=== PATIENT | female | born 1945 | race Caucasian/White ===

== ENCOUNTER 2019-01-01 16:02 | Inpatient (IN) | payer MEDICARE, OTHER ==
[~2019-01-01] VITALS: Ht 170.2 cm; Wt 117.9 kg
[~2019-01-01 16:02] MED LIST: ASPI81CH; ATOR10; ATOR10 PO; CENTRUM SILVER WOMEN PO; CLIN300 PO; CYAN500 PO; Cipro250 MG PO; DEXA4 PO; DIOVAN PO; ESCI10; ESCI10 PO; FERR325 PO; Flagyl250 MG PO; GABA300 PO; GLIMEPIRIDE PO; GLUC500 PO; GLUCHON; HCTZ PO; HYDCHL12.5 PO; HYDROCORTISONE CREAM TOP; LEVSOD125 PO; LEVSOD50; LEVSOD88 PO; LOSA50 PO; MAGOXI400 PO; METF500; METF500 PO; METF500C PO; METO100ER; METO100ER PO; MICARDIS PO; NAPR220 PO; OMEP20ER PO; Omeprazole20 M1 PO; PRED20 PO; TAXOL; TELM20 PO; TRIPLE FLEX PO; VALS80; VALS80 PO; VIT B; VITAMIN D PO; WARF2.5 PO; WARF3 PO; Zofran Odt4 MG SL
[2019-01-01 16:35] LABS: BASOPHILS ABSOLUTE AUTO 0.06 K/mm3 (0.00-0.23); BASOPHILS PERCENT AUTO 1 % (0-2); EOSINOPHILS ABSOLUTE AUTO 0.07 K/mm3 (0.00-0.68); EOSINOPHILS PERCENT AUTO 1 % (0-6); Hematocrit 42.3 % (33.0-51.0); Hemoglobin 13.4 g/dL (11.5-16.0); IMMATURE GRAN ABSOLUTE AUTO 0.02 K/mm3 (0.00-0.10); IMMATURE GRAN PERCENT AUTO 0 % (0-1); LYMPHOCYTES ABSOLUTE AUTO 1.08 K/mm3 (0.84-5.20); LYMPHOCYTES PERCENT AUTO 11 % (21-46); MONOCYTES ABSOLUTE AUTO 0.81 K/mm3 (0.16-1.47); MONOCYTES PERCENT AUTO 8 % (4-13); Mean Corpuscular HGB 28.4 pg (26.0-34.0); Mean Corpuscular HGB Conc 31.7 g/dL (31.5-36.5); Mean Corpuscular Volume 90 fL (80-100); Mean Platelet Volume 10.1 fL (9.1-12.4); NEUTROPHILS ABSOLUTE AUTO 8.27 K/mm3 (1.96-9.15); NEUTROPHILS PERCENT AUTO 80 % (41-73); Platelet Count 187 K/mm3 (150-400); RDW Standard Deviation 46.3 fL (35.1-46.3); Red Blood Cell Count 4.72 M/mm3 (3.80-5.20); White Blood Cell Count 10.31 K/mm3 (4.00-11.30)
[2019-01-01 16:58] LABS: Albumin, Blood 3.5 g/dL (3.4-5.0); Bilirubin, Total 1.6 mg/dL (0.1-1.0); Bun/Creatinine Ratio 19.4 (12.0-20.0); Calcium, Blood 8.6 mg/dL (8.5-10.1); Creatinine, Blood 1.03 mg/dL (0.40-1.00); Globulin, Blood 3.4 g/dL (2.2-4.0); Potassium, Blood 4.1 mmol/L (3.5-5.5); Total Protein, Blood 6.9 g/dL (6.4-8.2)
[2019-01-01] MEDS ORDERED: VITAMIN D31000 UNI2 PO (19:20)
[2019-01-01] MEDS ORDERED: THERA1 EACH PO (19:21)
[2019-01-01] MEDS ORDERED: FOLI1 PO (19:23)
[2019-01-01] MEDS ORDERED: Ferosul325 MG PO (19:25)
--- NOTE | 2019-01-02 06:06 | NUR ---
SHIFT SUMMARY PT NEW ADMIT THIS SHIFT. AAOX4. NPO. DISCOMFORT CONTROLLED WITH 50mcg FENTANYL Q4P. NO NAUSEA/EMESIS. HEADACHE CONTROLLED WITH TYLENOL X1 THIS SHIFT. ABD SOFT/DISTENDED AT BASELINE PER PT. UP TO BEDPAN PT REFUSED TO GET OOB FOR RESTROOM. PT EDUCATED REGARDING THE IMPORTANCE OF MOVEMENT PRE AND POST SURGERY. ORIENTED TO ROOM + CALL LIGHT USE. 18g IV IN PLACE INFUSING FLUIDS + ABX PER ORDERS. SURGICAL PACKET ON FRONT OF CHART. PT RESTING WELL AT THIS TIME, NADN, WITH CALL LIGHT IN REACH.
--- NOTE | 2019-01-02 09:06 | NUR ---
PLACED CALL TO DR CANNON TO OBTAIN ORDER FOR PT'S HOME MEDS.
--- NOTE | 2019-01-02 11:47 | NUR ---
PT TO PRE OP
--- NOTE | 2019-01-02 12:00 | NUR ---
INTO SDS VIA [employer]. PT A&OX3 REPORTS 5/10 ABDOMINAL PAIN AND INTERMITTENT NAUSEA. HISTORY AND ALLERGIES REVIEWED. NPO STATUS CONFIRMED. LUNGS WITH SCATTERED INSPIRATORY AND EXPIRATORY WZ. SATS>90% ON RA.CLORHEXADINE TO ABDOMEN.
--- NOTE | 2019-01-02 13:06 | NUR ---
01/02/19 1306 Mukul Anton PT ON SCHEDULED ANTIBIOTICS, WHICH WERE ADMINISTERED PRIOR TO ARRIVAL TO OR.
--- NOTE | 2019-01-02 17:25 | NUR ---
SUMMARY S/P LAP APPY THIS SHIFT. PT DENIES PAIN SINCE ARRIVING BACK TO FLOOR FROM PACU. TOLERATING SIPS OF CLEARS. IV INFUSING W/O DIFFICULTY. ECHO DRAINING SS FLUID. FAMILY AT BEDSIDE. CALL LIGHT IN REACH.
[2019-01-03 04:02] LABS: BASOPHILS ABSOLUTE AUTO 0.01 K/mm3 (0.00-0.23); BASOPHILS PERCENT AUTO 0 % (0-2); EOSINOPHILS PERCENT AUTO 0 % (0-6); Hematocrit 37.1 % (33.0-51.0); Hemoglobin 11.8 g/dL (11.5-16.0); IMMATURE GRAN ABSOLUTE AUTO 0.07 K/mm3 (0.00-0.10); IMMATURE GRAN PERCENT AUTO 1 % (0-1); LYMPHOCYTES ABSOLUTE AUTO 0.74 K/mm3 (0.84-5.20); LYMPHOCYTES PERCENT AUTO 6 % (21-46); MONOCYTES ABSOLUTE AUTO 0.67 K/mm3 (0.16-1.47); MONOCYTES PERCENT AUTO 5 % (4-13); Mean Corpuscular HGB Conc 31.8 g/dL (31.5-36.5); Mean Corpuscular Volume 88 fL (80-100); Mean Platelet Volume 10.2 fL (9.1-12.4); NEUTROPHILS ABSOLUTE AUTO 11.39 K/mm3 (1.96-9.15); NEUTROPHILS PERCENT AUTO 89 % (41-73); Platelet Count 146 K/mm3 (150-400); RDW Coefficient Variation 14.3 % (11.7-14.2); RDW Standard Deviation 45.8 fL (35.1-46.3); Red Blood Cell Count 4.22 M/mm3 (3.80-5.20); White Blood Cell Count 12.88 K/mm3 (4.00-11.30)
--- NOTE | 2019-01-03 04:20 | NUR ---
SHIFT SUMMARY POD1 LAP APPY AA0X4, VSS. PATIENT ON 2L VIA NC DURING SHIFT. DECLINED USE OF CPAP R/T DISCOMFORT WHEN WEARING. PATIENT AMBULATED TO BATHROOM AND IN HALLWAYS WITH MINIMAL ASSIST. LAP SITES COVERED WITH GAUZE, CDI. PATIENT MEDICATED FOR PAIN X1 DURING SHIFT. DENIES PAIN OTHERWISE. ECHO DRAIN EMPTIED FOR 40ML SS FLUID. PATIENT TOLERATING PO FLUIDS. STATES SHE IS PASSING SOME FLATUS. PATIENT VOIDING DURING SHIFT.
[2019-01-03 04:26] LABS: Bun/Creatinine Ratio 18.6 (12.0-20.0); Calcium, Blood 8.2 mg/dL (8.5-10.1); Creatinine, Blood 1.45 mg/dL (0.40-1.00); Potassium, Blood 4.4 mmol/L (3.5-5.5)
--- NOTE | 2019-01-03 14:03 | NUR ---
dr traylor in to see pt.
[2019-01-03 15:26] LABS: Source, Urine Clean Catch
[2019-01-03 15:32] LABS: Bilirubin, Urine Neg (Neg); Blood, Urine 1+ (Neg); Glucose Qualitative, Urine Neg (Neg); Ketones, Urine 2+ (Neg); Leukocyte Esterase, Urine 3+ (Neg); Nitrite, Urine Neg (Neg); Protein, Urine 2+ (Neg); Specific Gravity, Urine 1.025 (1.003-1.022); Urobilinogen, Urine NORM (Normal)
[2019-01-03 15:40] LABS: Appearance, Urine Hazy (Clear); Color, Urine Yellow (P-Yellow)
[2019-01-03 15:41] LABS: Bacteria Many /hpf; Red Blood Cells, Urine 0-2 /hpf (0-2); Squamous Epithelial Cells Mod /hpf (Few); White Blood Cells, Urine 25-50 /hpf (0-5)
--- NOTE | 2019-01-03 17:26 | NUR ---
SUMMARY PT HAD SMALL AMOUNT EMESIS THIS AM. MEDICATED PER ORDERS FOR N/V. PT HAS MINIMIZED PO INTAKE THIS SHIFT W/EXCEPTION OF WATER DUE TO GI UPSET. PAIN CONTROLLED PER EMAR. YUDITH OATES CONSULTED FOR DM MANAGEMENT PER DR CANNON'S VERBAL ORDER. ORDERS OBTAINED. PT AMBULATED IN [place]. RESTING AT THIS TIME W/LIGHTS OFF AND HOME CPAP IN PLACE. CALL LIGHT IN REACH.
[2019-01-04 04:14] LABS: Hematocrit 39.3 % (33.0-51.0); Hemoglobin 12.3 g/dL (11.5-16.0); Mean Corpuscular HGB 27.7 pg (26.0-34.0); Mean Corpuscular HGB Conc 31.3 g/dL (31.5-36.5); Mean Corpuscular Volume 89 fL (80-100); Mean Platelet Volume 10.1 fL (9.1-12.4); Platelet Count 159 K/mm3 (150-400); RDW Coefficient Variation 14.3 % (11.7-14.2); RDW Standard Deviation 46.2 fL (35.1-46.3); Red Blood Cell Count 4.44 M/mm3 (3.80-5.20); White Blood Cell Count 5.84 K/mm3 (4.00-11.30)
[2019-01-04 04:32] LABS: Albumin, Blood 2.5 g/dL (3.4-5.0); Albumin/Globulin Ratio 0.7 (0.8-1.8); Bilirubin, Total 1.2 mg/dL (0.1-1.0); Calcium, Blood 8.2 mg/dL (8.5-10.1); Creatinine, Blood 1.35 mg/dL (0.40-1.00); Globulin, Blood 3.7 g/dL (2.2-4.0); Potassium, Blood 4.2 mmol/L (3.5-5.5); Total Protein, Blood 6.2 g/dL (6.4-8.2)
--- NOTE | 2019-01-04 05:11 | NUR ---
SHIFT SUMMARY POD 2 LAP APPY PT AA0X4 VSS UNTIL LAST CHECK BP ELEVATED, PRN HYDRALAZINE GIVEN. PAIN MANAGED WITH PO NARCOTICS DURING SHIFT. PATIENT AMBULATED HALLS AND TO RESTROOM DURING SHIFT, TOLERATED WELL. DENIES FLATUS, BOWEL SOUNDS PRESENT. SOME COMPLAINTS OF GAS PAIN. 160ML OUT OF ECHO DRAIN. SS DRAINAGE. LAP SITES CDI. PATIENT C/O NAUSEA AND GIVEN PRN ZOFRAN, PATIENT STATES RELIEF. CPAP WORN DURING SHIFT. ROOM AIR WHEN NOT WEARING CPAP.
--- NOTE | 2019-01-04 06:18 | NUR ---
HIGH BP DR NOTIFIED OF NEW ELEVATED BP. NEW ORDERS FOR PRN LABETELOL GIVEN. PATIENT CURRENTLY ASYMPTOMATIC. ONLY COMPLAINTS OF FEELING "A LITTLE CRUMMY". AWAITING TELE TO ADMINISTER MEDICATION.
--- NOTE | 2019-01-04 06:48 | NUR ---
TELE APPLIED. SINUS AT 68 PER HEALTH CARE FACILITY ADMINISTRATOR. LABETELOL GIVEN. PT TOLERATED WELL. STATES THAT SHE DOES NOT FEEL CRUMMY. SHE "FEELS MORE RELAXED".
--- NOTE | 2019-01-04 16:32 | NUR ---
dr traylor here and removed inez drain
--- NOTE | 2019-01-04 17:48 | NUR ---
summary patient reports good pain control with po meds- states she plans to just take plain tylenol in the future. to small amounts po food and fluid without nausea. patient anticipates discharging to home in the morning. patient up ad hope to bathroom, steady on feet
--- NOTE | 2019-01-05 03:22 | NUR ---
Patient A/O x4. VSS. Saline locked. Complaints of N/V and mild pain; medicated as ordered. Ambulating in room, voiding freely. Patient reports no flatus. Dressing to abd DCI. New IV placed to R AC.
--- NOTE | 2019-01-05 07:08 | NUR ---
IV to R AC infiltrted. Multiple attempts made to establish IV access, unsuccessful.
[2019-01-05 11:23] LABS: Albumin, Blood 2.9 g/dL (3.4-5.0); Albumin/Globulin Ratio 0.7 (0.8-1.8); Bun/Creatinine Ratio 26.5 (12.0-20.0); Creatinine, Blood 1.17 mg/dL (0.40-1.00); Globulin, Blood 4.3 g/dL (2.2-4.0); Total Protein, Blood 7.2 g/dL (6.4-8.2)
--- NOTE | 2019-01-05 19:11 | NUR ---
SHIFT SUMMARY PT POD 3 LAP APPY, LAP AND ECHO SITES C/D/I. BT HYPOACTIVE. C/O N/V THROUGHOUT SHIFT-MEDICATED PER EMAR, EMESIS LIGHT BROWN IN COLOR. PT CONTINUES TO HAVE HTN T/O SHIFT, MEDICATED PER EMAR WITH NO IMPROVEMENT IN BP. DR FRANCES NOTIFIED AND ORDER TO INCREASE PO HYDRALAZINE WHICH WAS GIVEN TO PT WITH NO IMPROVEMENT. ANIMAL MAINTENANCE SUPERVISOR HOSPITALIST NOTIFED AT 1908, AWAITING NEW ORDERS. REPORT GIVEN TO JESSEE RODRIGUEZ.
--- NOTE | 2019-01-05 23:21 | NUR ---
PATIENT AT THE BEGINNING OF THIS SHIFT WAS NAUSEATED AND VOMITING. EMESIS WAS MOSTLY TRANSLUCENT FLUID WITH BROWN/DALEY COLOR, AND FLECKS OF BROWN. EMESIS WAS FREQUENT AND AMOUNTS LESS THAN 100CC. PATIENT WAS HAVING DISCOMFORT RELATED TO THE NAUSEA AND VOMITING, DILAUDID GIVEN @ 1900 FOR PAIN, WITH RAPID RELIEF TO NAUSEA, VOMITING AND ELEVATED BP. TWO HOURS LATER THE PATIENT WAS RESTING WITH NO COMPLAINTS AND A SYSTOLIC BP LESS THAN 160.
--- NOTE | 2019-01-06 03:35 | NUR ---
PATIENT HAS HAD INTERMITTENT NAUSEA AND SCANT AMOUNT OF EMESIS. SIPS OF WATER TO TAKE PO MEDS. BELCHING WHEN UP TO WALK OR TO BR. SHE FEELS THAT HER ABDOMENT IS LESS DISTENEDED THAN YESTERDAY AFTERNOON.
[2019-01-06 04:40] LABS: BASOPHILS ABSOLUTE AUTO 0.04 K/mm3 (0.00-0.23); BASOPHILS PERCENT AUTO 1 % (0-2); EOSINOPHILS ABSOLUTE AUTO 0.05 K/mm3 (0.00-0.68); EOSINOPHILS PERCENT AUTO 1 % (0-6); Hematocrit 39.2 % (33.0-51.0); Hemoglobin 12.4 g/dL (11.5-16.0); Mean Corpuscular HGB 28.3 pg (26.0-34.0); Mean Corpuscular HGB Conc 31.6 g/dL (31.5-36.5); Mean Corpuscular Volume 90 fL (80-100); Mean Platelet Volume 9.4 fL (9.1-12.4); Platelet Count 191 K/mm3 (150-400); RDW Standard Deviation 46.5 fL (35.1-46.3); Red Blood Cell Count 4.38 M/mm3 (3.80-5.20); White Blood Cell Count 3.56 K/mm3 (4.00-11.30)
[2019-01-06 04:42] LABS: IMMATURE GRAN ABSOLUTE AUTO 0.03 K/mm3 (0.00-0.10); IMMATURE GRAN PERCENT AUTO 1 % (0-1); LYMPHOCYTES ABSOLUTE AUTO 0.87 K/mm3 (0.84-5.20); LYMPHOCYTES PERCENT AUTO 24 % (21-46); MONOCYTES ABSOLUTE AUTO 0.48 K/mm3 (0.16-1.47); MONOCYTES PERCENT AUTO 14 % (4-13); NEUTROPHILS ABSOLUTE AUTO 2.09 K/mm3 (1.96-9.15); NEUTROPHILS PERCENT AUTO 59 % (41-73)
[2019-01-06 04:56] LABS: Bun/Creatinine Ratio 21.7 (12.0-20.0); Calcium, Blood 8.4 mg/dL (8.5-10.1); Creatinine, Blood 1.15 mg/dL (0.40-1.00); Potassium, Blood 4.3 mmol/L (3.5-5.5)
--- NOTE | 2019-01-06 06:31 | NUR ---
PATIENT'S NAUSEA HAS RESOLVED, NO VOMITING FOR THE PAST 2 HOURS. BP THIS AM WAS 158/95, HR 70 SR. NO OTHER ACUTE CHANGES.
--- NOTE | 2019-01-06 17:35 | NUR ---
SHIFT SUMMARY PT HAS CONTINUED TO HAVE N/V THROUGHOUT SHIFT-EMESIS DARK GREEN IN COLOR, SMALL AMOUNTS AT A TIME, PT HAS BEEN ABLE TO KEEP PO MEDICATIONS DOWN THIS SHIFT. ABDOMEN MODERATE DISTENTION, BUT HYPOACTIVE, DENIES FLATUS THIS SHIFT. CONTINUED HTN-DENIES HEADACHE. MD NOTIFIED, RESTARTED ON COZAR AND CONTINUED MEDICATING WITH PRN MEDICATIONS, BP INITIALLY SHOWS IMPROVEMENT BUT THEN TRENDS BACK UP, MD AWARE. TELE INPLACE, NSR W/HR IN 80'S THIS SHIFT. PT EDUCATED ON THE NEED TO AMBULATE IN HALLWAYS AT LEAST 3 TIMES PER SHIFT TO ENCOURAGE GASTRIC MOTILITY, VERBALIZED UNDERSTANDING OF THESE INSTRUCTIONS. MEDICATED FOR ABDOMINAL PAIN PER EMAR.
--- NOTE | 2019-01-07 06:39 | NUR ---
SUMMARY PT WITH SMALL AMNTS BILE SPIT UP TONIGHT.IV REQUIRING CHANGED. Sha ROBLES RN OBTAINED POWER GLIDE PT IS DIFF START.ABD DISTENDED, BUT SOFT. SOME FLATUS,NO BM. REPORTED ILEUS.
--- NOTE | 2019-01-07 19:21 | NUR ---
SUMMARY: PT IS POD5 ACUTE LAP APPY. NO ACUTE CHANGE TODAY. PT CONTINUES TO HAVE HTN, MEDS ADJUSTED BY DR. ODELL IN THE MORNING AND BP DID TREND DOWN, ALTHOUGH IN THE LATE AFTERNOON, PT HAD MORE HTN. DR. ODELL NOTIFIED OF THIS AND IV LASIX GIVEN X1. PT ALSO REPORTED INCREASED PAIN AND NAUSEA AT THIS TIME, MEDICATION GIVEN. WILL CTM BP. PT HAS HAD INTERMITTANT NAUSEA TODAY AND SEVERAL UNMEASURED EMESIS AFTER SMALL INTAKE OF FLUID. MEDICATED PER EMAR. PT REPORTS GAS, NO BM, NOT TOLERATING PO INTAKE AT THIS TIME. NO ACUTE SAFETY CONCERNS CURRENTLY, REPORT GIVEN TO DAVON RODRIGUEZ.
[2019-01-08 06:23] LABS: Hematocrit 36.2 % (33.0-51.0); Hemoglobin 11.3 g/dL (11.5-16.0); Mean Corpuscular HGB 27.3 pg (26.0-34.0); Mean Corpuscular HGB Conc 31.2 g/dL (31.5-36.5); Mean Platelet Volume 9.3 fL (9.1-12.4); Platelet Count 227 K/mm3 (150-400); RDW Coefficient Variation 14.1 % (11.7-14.2); RDW Standard Deviation 45.6 fL (35.1-46.3); Red Blood Cell Count 4.14 M/mm3 (3.80-5.20); White Blood Cell Count 4.76 K/mm3 (4.00-11.30)
[2019-01-08 06:24] LABS: Mean Corpuscular Volume 87 fL (80-100)
[2019-01-08 06:41] LABS: Albumin, Blood 2.5 g/dL (3.4-5.0); Anion Gap 9 mmol/L (6-16); Blood Urea Nitrogen 24 mg/dL (8-24); Bun/Creatinine Ratio 22.6 (12.0-20.0); CO2, Blood 22 mmol/L (21-32); Calcium, Blood 7.8 mg/dL (8.5-10.1); Chloride, Blood 113 mmol/L (98-108); Creatinine, Blood 1.06 mg/dL (0.40-1.00); Glomerular Filtration Rate 54 (60-); Glucose, Blood 105 mg/dL (70-99); Magnesium, Blood 1.7 mg/dL (1.6-2.4); Phosphorus, Blood 3.2 mg/dL (2.5-4.9); Potassium, Blood 3.8 mmol/L (3.5-5.5); Sodium, Blood 144 mmol/L (136-145)
[2019-01-08 06:56] LABS: BAND PERCENT MAN 10 % (0-8); BASOPHILS PERCENT MAN 0 % (0-2); EOSINOPHILS ABSOLUTE MAN 0.09 K/mm3 (0.00-0.68); EOSINOPHILS PERCENT MAN 2 % (0-6); LYMPHOCYTES ABSOLUTE MAN 0.66 K/mm3 (0.84-5.20); LYMPHOCYTES PERCENT MAN 14 % (21-46); MONOCYTES ABSOLUTE MAN 0.47 K/mm3 (0.16-1.47); MONOCYTES PERCENT MAN 10 % (4-13); NEUTROPHILS ABSOLUTE MAN 3.52 K/mm3 (1.96-9.15); SEG NEUTROPHILS PERCENT MAN 64 % (41-73); TOTAL CELLS COUNTED 100
--- NOTE | 2019-01-08 07:37 | NUR ---
SUMMARY PT ZE ARELLANO.
--- NOTE | 2019-01-08 16:17 | NUR ---
SPOKE WITH DR. ODELL CONCERNING PT PAIN AND NAUSEA TODAY. SHE SUGGESTED THAT DR. KRUEGER BE NOTIFIED AND REQUEST AN ABD CT. SPOKE WITH DR. KRUEGER AT THIS TIME AND ABD/PELVIS WITH IV CONTRAST ORDERED. PT RESTING AT THIS TIME AFTER GIVEN 0.5 DILAUDID, REPORTS NAUSEA "OK" AT THIS TIME
--- NOTE | 2019-01-08 19:37 | NUR ---
SUMMARY: PT IS POD6 LAP APPY. PT CONTINUES TO HAVE HTN, AWARE. OTHERWISE VSS. PAIN AND NAUSEA SEEMED TO BE MANAGED THIS MORNING, BUT BY AFTERNOON, AND AFTER TAKING IN SMALL AMOUNTS OF FLUID AND FOOD PT WAS VOMITING SMALL, UNMEASURED AMOUNTS AND REPORTING PAIN. DR. GOINS SAW PT AT THIS TIME AND ADJUSTED ORDERS. PT CURRENT DOING BETTER AND HAS BACKED OFF ON TAKING IN PO. CT SCAN COMPLETED. PT DID HAVE SERVERAL BM'S TODAY, BOWEL TONES HYPOACTIVE. PT DAUGHTER GIVEN AN UPDATE. NO ACUTE SAFETY CONCERNS AT THIS TIME, REPORT GIVEN TO JENNIFER POLK.
[2019-01-09 04:58] LABS: BASOPHILS ABSOLUTE AUTO 0.04 K/mm3 (0.00-0.23); BASOPHILS PERCENT AUTO 1 % (0-2); EOSINOPHILS PERCENT AUTO 2 % (0-6); Hematocrit 35.2 % (33.0-51.0); Hemoglobin 11.4 g/dL (11.5-16.0); IMMATURE GRAN ABSOLUTE AUTO 0.12 K/mm3 (0.00-0.10); IMMATURE GRAN PERCENT AUTO 2 % (0-1); LYMPHOCYTES ABSOLUTE AUTO 1.41 K/mm3 (0.84-5.20); LYMPHOCYTES PERCENT AUTO 26 % (21-46); MONOCYTES ABSOLUTE AUTO 0.72 K/mm3 (0.16-1.47); MONOCYTES PERCENT AUTO 13 % (4-13); Mean Corpuscular HGB Conc 32.4 g/dL (31.5-36.5); Mean Corpuscular Volume 87 fL (80-100); Mean Platelet Volume 9.5 fL (9.1-12.4); NEUTROPHILS ABSOLUTE AUTO 3.02 K/mm3 (1.96-9.15); NEUTROPHILS PERCENT AUTO 56 % (41-73); Platelet Count 251 K/mm3 (150-400); RDW Standard Deviation 44.6 fL (35.1-46.3); Red Blood Cell Count 4.07 M/mm3 (3.80-5.20); White Blood Cell Count 5.41 K/mm3 (4.00-11.30)
[2019-01-09 05:24] LABS: Albumin, Blood 2.5 g/dL (3.4-5.0); Anion Gap 9 mmol/L (6-16); Blood Urea Nitrogen 22 mg/dL (8-24); Bun/Creatinine Ratio 21.8 (12.0-20.0); CO2, Blood 23 mmol/L (21-32); Calcium, Blood 7.9 mg/dL (8.5-10.1); Chloride, Blood 111 mmol/L (98-108); Creatinine, Blood 1.01 mg/dL (0.40-1.00); Glomerular Filtration Rate 57 (60-); Glucose, Blood 114 mg/dL (70-99); Phosphorus, Blood 2.8 mg/dL (2.5-4.9); Potassium, Blood 3.4 mmol/L (3.5-5.5); Sodium, Blood 143 mmol/L (136-145)
--- NOTE | 2019-01-09 06:34 | NUR ---
SHIFT SUMMARY HAS RESTED WELL THIS SHIFT. REPOSITIONED IN BED PRN COMFORT. MEDICATED FOR PAIN X1 THIS SHIFT. DENIES FURTHER NEEDS AT THIS TIME. SAFETY MEASURES IN PLACE. WILL GIVE HAND OFF TO ONCOMING SHIFT USING SBAR.
--- NOTE | 2019-01-09 17:26 | NUR ---
SHIFT SUMMARY STERI STRIPS TO ABD ARE CDI. PT REPORTS PASSING GAS AND HAS HAD MULTIPLE EPISODES OF DIARRHEA TODAY IN WHICH Frederick IS AWARE OF. PT ATTEMPTED REG FOODS AND DID HAVE EMESIS X2. REGRESSED BACK TO CLEAR LIQ DIET. RECEIVING PHENERGAN PRN WHICH SEEMS TO BE EFFECTIVE. MEDICATED WITH IV DILAUDID X1 FOR PAIN PRN. PT CONT TO AMBULATE HALLWAY TOLERATED. IVF INFUSING PER ORDERS. FAMILY AT BEDSIDE FOR SUPPORT. CALL LIGHT WITHIN REACH.
--- NOTE | 2019-01-09 19:05 | NUR ---
RECVD REPORT FROM PREVIOUS SHIFT JENNIFER DUCKWORTH. PT IN BED, A/0 X 4, PLEASANT/COOPERATIVE, DENIES PAIN, DENIES N/V. CALL LIGHT WITHIN REACH, BED RAILS UP X 2
[2019-01-10 05:13] LABS: BASOPHILS ABSOLUTE AUTO 0.04 K/mm3 (0.00-0.23); BASOPHILS PERCENT AUTO 1 % (0-2); EOSINOPHILS ABSOLUTE AUTO 0.05 K/mm3 (0.00-0.68); EOSINOPHILS PERCENT AUTO 1 % (0-6); Hemoglobin 12.1 g/dL (11.5-16.0); IMMATURE GRAN ABSOLUTE AUTO 0.08 K/mm3 (0.00-0.10); IMMATURE GRAN PERCENT AUTO 1 % (0-1); LYMPHOCYTES ABSOLUTE AUTO 1.35 K/mm3 (0.84-5.20); LYMPHOCYTES PERCENT AUTO 17 % (21-46); MONOCYTES ABSOLUTE AUTO 0.87 K/mm3 (0.16-1.47); MONOCYTES PERCENT AUTO 11 % (4-13); Mean Corpuscular HGB 28.2 pg (26.0-34.0); Mean Corpuscular HGB Conc 31.8 g/dL (31.5-36.5); Mean Corpuscular Volume 89 fL (80-100); Mean Platelet Volume 9.4 fL (9.1-12.4); NEUTROPHILS ABSOLUTE AUTO 5.37 K/mm3 (1.96-9.15); NEUTROPHILS PERCENT AUTO 69 % (41-73); Platelet Count 286 K/mm3 (150-400); RDW Coefficient Variation 14.1 % (11.7-14.2); RDW Standard Deviation 45.6 fL (35.1-46.3); Red Blood Cell Count 4.29 M/mm3 (3.80-5.20); White Blood Cell Count 7.76 K/mm3 (4.00-11.30)
[2019-01-10 05:27] LABS: Albumin, Blood 2.8 g/dL (3.4-5.0); Anion Gap 7 mmol/L (6-16); Blood Urea Nitrogen 23 mg/dL (8-24); Bun/Creatinine Ratio 21.9 (12.0-20.0); CO2, Blood 25 mmol/L (21-32); Calcium, Blood 8.1 mg/dL (8.5-10.1); Chloride, Blood 111 mmol/L (98-108); Creatinine, Blood 1.05 mg/dL (0.40-1.00); Glomerular Filtration Rate 55 (60-); Glucose, Blood 129 mg/dL (70-99); Phosphorus, Blood 2.9 mg/dL (2.5-4.9); Potassium, Blood 3.6 mmol/L (3.5-5.5); Sodium, Blood 143 mmol/L (136-145)
--- NOTE | 2019-01-10 05:37 | NUR ---
BP 190/83, PROVIDED IV HYDRALAZINE PER MAY. WILL REASSESS BP
--- NOTE | 2019-01-10 05:38 | NUR ---
SHIFT SUMMARY: PT TOLERATED CLEAR PO INTAKE WITH NAUSEOUSNESS, NO VOMITING. PT AMBULATED IN HALLWAY X 3 THIS SHIFT, INDEPENDENT IN ROOM. VOIDING, LOOSE BM X 1. PT STATES PAIN CONTROLLED TO HER EXPECTATION PER MAY. PT REMAINED A/O X 4, PLEASANT/COOPERATIVE. PERFORMED LINE DRAW FOR MORNING LABS WNL.
--- NOTE | 2019-01-10 17:58 | NUR ---
SHIFT SUMMARY PT CONT TO BE NAUSEATED AND HAS HAD X3 EPISODES OF EMESIS THIS EVENING AFTER ATTEMPTING TO SIP ON CLEAR LIQS. MEDICATING WITH 12.5MG PHENERGAN IV. PT DID HAVE X1 LIQ BM, BUT DOES REPORT DECREASED FLATUS. PT REPORTS ABD TENDERNESS, BLOATING, AND PAIN. MEDICATING WITH 0.5MG IV DILAUDID. IVF INFUSING PER ORDERS. PT CONT TO AMBULATE HALLWAY INDEPENDENTLY. USES CALL LIGHT APPROPRIATELY.
--- NOTE | 2019-01-11 04:16 | NUR ---
Patient A/Ox4. B/P elevated. Using CPAP at night. Ambulating to bathroom independently. Patient having N/V and watery Stools. Incontinent of BMs. Complaints of abd pain. Medicated as ordered.
--- NOTE | 2019-01-11 08:02 | NUR ---
pt sleeping wakes to verbal stimuli pt reports pain 2/10 pt has some hiccups pt assisted to bathroom for bm stated that she has been having pudding consistency the last bm prior was more loose
--- NOTE | 2019-01-11 08:43 | NUR ---
meds given as sched pt stated she is feeling better
--- NOTE | 2019-01-11 10:42 | NUR ---
PT WOKE UP INTO THE BATHROOM TO HAVE BM
--- NOTE | 2019-01-11 12:30 | NUR ---
DR LYNN BY TO SEE PT EARLIER PT RESTING
--- NOTE | 2019-01-11 14:30 | NUR ---
DR CANNON BY TO SEE PT SHE AMB IN [facility] ALSO ASKED FOR A CHICKEN BROTH ADV DIET TO EG FOR DINNER ENCORAGED ORAL HYDRATION
--- NOTE | 2019-01-11 17:01 | NUR ---
MEDS GIVEN SCHED PT OOB TO BATHROO STILL HAVING LIQUID STOOL
--- NOTE | 2019-01-12 06:19 | NUR ---
SUMMARY PT CONTINUES WITH LOOSE BMS. NO REQUEST FOR PAIN MEDS TONIGHT. HOPING FOR DISCHARGE HOME TODAY.
--- NOTE | 2019-01-12 13:49 | NUR ---
discharged DC'D POWERGLIDE, CATHETER INTACT. REVIEWED DC PAPERWORK; PT VERBALIZED UNDERSTANDING. PT LEFT UNIT IN WC W/POSSESSIONS AND DC PAPERWORK IN HAND, ACCOMPANIED BY SPOUSE.
== END 2019-01-12 13:45 | disposition home or self-care (01) | DRG 339 ==
LOC: ER 16:02 → SURS 18:43
PROVIDERS: Hospitalist; Internal Medicine; Nurse Practitioner Acute Care; Physician Assistant; Surgery; ADMIT Surgery
PROC: 0DTJ4ZZ Resection of Appendix, Percutaneous Endoscopic Approach (ICD-10-PCS; principal; 2019-01-02 12:30)
DX: K35.32 Acute appendicitis with perforation, localized peritonitis, and gangrene, without abscess (principal); Z68.41 Body mass index [BMI] 40.0-44.9, adult; N17.9 Acute kidney failure, unspecified; K56.7 Ileus, unspecified; Z98.84 Bariatric surgery status; Z90.13 Acquired absence of bilateral breasts and nipples; E66.01 Morbid (severe) obesity due to excess calories; E03.9 Hypothyroidism, unspecified; G47.33 Obstructive sleep apnea (adult) (pediatric); F32.9 Major depressive disorder, single episode, unspecified; K21.9 Gastro-esophageal reflux disease without esophagitis; E87.6 Hypokalemia; N18.9 Chronic kidney disease, unspecified; I12.9 Hypertensive chronic kidney disease with stage 1 through stage 4 chronic kidney disease, or unspecified chronic kidney disease; E11.22 Type 2 diabetes mellitus with diabetic chronic kidney disease; Z79.84 Long term (current) use of oral hypoglycemic drugs
CPT/HCPCS: 36415; 74177; 80048; 80053; 80069; 81001; 82947; 83690; 83735; 84100; 85025; 85027; 88304; 93005; 93010; 94660; 94762; 96361; 96365-59; 96375; 96376; 99285-25; A9270; A9270-GY; C1751; J0360; J0694; J1100; J1170; J1650; J1885; J1940; J2250; J2405; J2550; J2704; J2710; J3010; J3480; J7030; J7040; J7120; Q9967

== ENCOUNTER → 2019-01-18 | Outpatient (CLI) | payer MEDICARE, OTHER ==
[~2019-01-18] MED LIST changes: +FOLI1 PO; +Ferosul325 MG PO; +THERA1 EACH PO; +VITAMIN D31000 UNI2 PO
[2019-01-19 09:03] LABS: C DIFFICILE BY DNA AMP Positive (Negative)
== END | disposition home or self-care (01) ==
LOC: LAB SHORT 10:00 → LAB 10:00 → LAB FUT 01-18 15:20
PROVIDERS: Internal Medicine
DX: R19.7 Diarrhea, unspecified (principal)
CPT/HCPCS: 87324; 87493

== ENCOUNTER 2020-12-10 09:49 | Day surgery (SDC) | payer MEDICARE ==
[~2020-12-10] VITALS: Ht 170.2 cm; Wt 126.2 kg
--- NOTE | 2020-12-10 10:40 | NUR ---
12/10/20 1039 Brianna Mcclellan MAC CASE WITH DR. MARIO. SEE ANETHESIA FLOWSHEET FOR CARE. MONITOR INTACT WITH CONTINUOUS PULSE OXIMETRY AND INTERMITTENT BP.3-LEAD EKG REVIEWED WITH PHYSICIAN PRIOR TO START OF PROCEDURE.O2 VIA NRM INTACT THROUGHOUT SEDATION/PROCEDURE.
--- NOTE | 2020-12-10 11:35 | NUR ---
Patient up to Ambulate independently. Gait steady. Discharge instructions reviewed with patient. Patient verbalizes understanding. Copy given to patient to take home. Discharged via wheelchair to private car for ride home.
== END 2020-12-10 23:27 | disposition home or self-care (01) ==
LOC: ORSCMMR 09:49 → ORSCSDS 10:45 → ORSCMMR 10:45
PROVIDERS: Surgery
PROC: 0DBM8ZX Excision of Descending Colon, Via Natural or Artificial Opening Endoscopic, Diagnostic (ICD-10-PCS; principal; 2020-12-10 10:45)
DX: Z12.11 Encounter for screening for malignant neoplasm of colon (principal); Z86.010 Personal history of colon polyps; D12.4 Benign neoplasm of descending colon; G47.33 Obstructive sleep apnea (adult) (pediatric); E11.9 Type 2 diabetes mellitus without complications; E78.5 Hyperlipidemia, unspecified; I10 Essential (primary) hypertension; Z85.3 Personal history of malignant neoplasm of breast; Z79.84 Long term (current) use of oral hypoglycemic drugs; Z79.899 Other long term (current) drug therapy
CPT/HCPCS: 82947; 88305; J2704; J7120

== ENCOUNTER → 2021-05-10 | Outpatient (CLI) | payer MEDICARE | END | disposition home or self-care (01) | LOC: LAB 15:04 → LAB SHORT 15:04 | DX: N39.0 Urinary tract infection, site not specified (principal) | CPT/HCPCS: 87077; 87086; 87186 ==

== ENCOUNTER → 2023-12-31 | Outpatient (CLI) | payer MEDICARE ==
[2023-12-31 10:27] LABS: Source, Urine Clean Catch
[2023-12-31 12:20] LABS: Bilirubin, Urine Neg (Neg); Blood, Urine Neg (Neg); Glucose Qualitative, Urine Neg (Neg); Ketones, Urine Neg (Neg); Leukocyte Esterase, Urine 3+ (Neg); Nitrite, Urine Pos (Neg); Protein, Urine 1+ (Neg); Urobilinogen, Urine NORM (Normal)
[2023-12-31 13:24] LABS: Appearance, Urine Hazy (Clear); Color, Urine Pale Yellow (P-Yellow)
[2023-12-31 13:25] LABS: Bacteria Many /hpf; Red Blood Cells, Urine Not Seen /hpf (0-2); Squamous Epithelial Cells Few /hpf (Few)
== END | disposition home or self-care (01) ==
LOC: LAB 10:25 → LAB SHORT 10:25
PROVIDERS: Internal Medicine
DX: R30.0 Dysuria (principal)
CPT/HCPCS: 81001; 87077; 87086; 87186

== ENCOUNTER → 2024-09-13 | Outpatient (CLI) | payer OTHER ==
[~2024-09-13] MED LIST changes: +OZEMPIC0.25 MG/02 SQ
== END | disposition home or self-care (01) ==
LOC: LAB 18:06 → LAB SHORT 18:06
DX: L03.90 Cellulitis, unspecified (principal)
CPT/HCPCS: 87070; 87077; 87186; 87205

== ENCOUNTER 2024-09-19 09:59 | Day surgery (SDC) | payer OTHER ==
[~2024-09-19] VITALS: Ht 167.6 cm; Wt 95.0 kg
[~2024-09-19 09:59] MED LIST changes: +Dexamethasone Sod Phos 10 MG/ML 1ML VIAL ONE; +FentaNYL Citrate 50 MCG/ML 2 ML Injection ONE; +Ketorolac Tromethamine 30mg Vial ONE; +Lidocaine HCl 2% 10 ML SDA ONE; -OZEMPIC0.25 MG/02 SQ; +Ondansetron HCl 2 MG / ML 2ML Vial ONE; +Rocuronium Bromide 10 MG/ML 5ML Injection IV ONE
[2024-09-19] MEDS ORDERED: CeFAZolin Sodium 2,000 MG VIAL ONE (10:08)
[2024-09-19] MEDS ORDERED: OZEMPIC0.25 MG/02 SQ (10:34)
[2024-09-19] MEDS ORDERED: Rocuronium Bromide 10 MG/ML 5ML Injection IV ONE (11:58)
[2024-09-19] MEDS ORDERED: Sugammadex Sodium 200 MG/2ML SDV (100 MG/ML) ONE (12:06)
--- NOTE | 2024-09-19 13:01 | NUR ---
09/19/24 1301 Kate Arevalo 1250 PT DAUGHTER, IAM AT BEDSIDE. PT SITTING UP IN RECLINER DRINKING APPLE JUICE AND EATING COOKIES. 1300 REPORT TO JENNIFER ROWE.
[2024-09-19] MEDS ORDERED: HYDROcodone 5-APAP 325 TAB ONE (13:11)
[2024-09-19 13:32] VITALS: BP 176/79
== END 2024-09-19 14:13 | disposition home or self-care (01) ==
LOC: ORSCSDS 09:59
PROVIDERS: Orthopaedic Surgery
PROC: 0KBC0ZZ Excision of Right Hand Muscle, Open Approach (ICD-10-PCS; principal; 2024-09-19 11:30)
DX: S61.411A Laceration without foreign body of right hand, initial encounter (principal); I10 Essential (primary) hypertension; G47.33 Obstructive sleep apnea (adult) (pediatric); E11.9 Type 2 diabetes mellitus without complications; E03.9 Hypothyroidism, unspecified; G51.0 Bell's palsy; Z98.84 Bariatric surgery status; Z85.3 Personal history of malignant neoplasm of breast; Z79.899 Other long term (current) drug therapy; Z79.85 Long-term (current) use of injectable non-insulin antidiabetic drugs
CPT/HCPCS: 82947; 87070; 87075; 87205; A9270; J0690; J1100; J1885; J2003; J2405; J2704; J3010

== ENCOUNTER 2024-10-07 11:55 | Emergency (ER) | payer OTHER ==
[~2024-10-07] VITALS: Ht 170.2 cm; Wt 97.1 kg
[~2024-10-07 11:55] MED LIST changes: -Dexamethasone Sod Phos 10 MG/ML 1ML VIAL ONE; -FentaNYL Citrate 50 MCG/ML 2 ML Injection ONE; -Ketorolac Tromethamine 30mg Vial ONE; -Lidocaine HCl 2% 10 ML SDA ONE; +OZEMPIC0.25 MG/02 SQ; -Ondansetron HCl 2 MG / ML 2ML Vial ONE; -Rocuronium Bromide 10 MG/ML 5ML Injection IV ONE
[2024-10-07 13:24] LABS: Source, Urine Clean Catch
[2024-10-07 13:32] LABS: BASOPHILS ABSOLUTE AUTO 0.06 K/mm3 (0.00-0.23); BASOPHILS PERCENT AUTO 1 % (0-2); EOSINOPHILS ABSOLUTE AUTO 0.14 K/mm3 (0.00-0.68); EOSINOPHILS PERCENT AUTO 2 % (0-6); Hematocrit 34.6 % (33.0-51.0); Hemoglobin 11.2 g/dL (11.5-16.0); IMMATURE GRAN ABSOLUTE AUTO 0.01 K/mm3 (0.00-0.10); IMMATURE GRAN PERCENT AUTO 0 % (0-1); LYMPHOCYTES ABSOLUTE AUTO 1.52 K/mm3 (0.84-5.20); LYMPHOCYTES PERCENT AUTO 26 % (21-46); MONOCYTES ABSOLUTE AUTO 0.56 K/mm3 (0.16-1.47); MONOCYTES PERCENT AUTO 10 % (4-13); Mean Corpuscular HGB Conc 32.4 g/dL (31.5-36.5); Mean Corpuscular Volume 91 fL (80-100); NEUTROPHILS ABSOLUTE AUTO 3.54 K/mm3 (1.96-9.15); NEUTROPHILS PERCENT AUTO 61 % (41-73); NRBC ABSOLUTE 0.00 K/mm3 (0.00-0.02); NRBC Auto 0.0 /100 WBC (0.0-0.2); Platelet Count 171 K/mm3 (150-400); RDW Coefficient Variation 14.1 % (11.7-14.2); RDW Standard Deviation 47.5 fL (35.1-46.3)
[2024-10-07 13:34] LABS: Bilirubin, Urine Neg (Neg); Color, Urine Yellow (P-Yellow); Glucose Qualitative, Urine Neg (Neg); Ketones, Urine Neg (Neg); Leukocyte Esterase, Urine Neg (Neg); Protein, Urine 1+ (Neg); Specific Gravity, Urine 1.025 (1.003-1.022); Urobilinogen, Urine NORM (Normal)
[2024-10-07 13:59] LABS: Alanine Aminotransfer (ALT/SGP 41.0 U/L (12-78); Albumin, Blood 3.5 g/dL (3.4-5.0); Albumin/Globulin Ratio 1.1 (0.8-1.8); Anion Gap 8.0 mmol/L (3-11); Aspartate Aminotrans (AST/SGOT 17.0 U/L (12-37); Bilirubin, Total 0.9 mg/dL (0.1-1.0); Blood Urea Nitrogen 25.0 mg/dL (8-24); CO2, Blood 25.0 mmol/L (21-32); Calcium, Blood 8.4 mg/dL (8.5-10.1); Chloride, Blood 109.0 mmol/L (98-108); Creatinine, Blood 1.04 mg/dL (0.40-1.00); Globulin, Blood 3.1 g/dL (2.2-4.0); Glucose, Blood 93.0 mg/dL (70-99); Potassium, Blood 3.7 mmol/L (3.5-5.5); Sodium, Blood 138.0 mmol/L (136-145); Total Protein, Blood 6.6 g/dL (6.4-8.2)
[2024-10-07] MEDS ORDERED: HYDR1TAB94 PO (17:29)
[2024-10-07] MEDS ORDERED: HYDROcodone 5-APAP 325 TAB PO ONE (17:35)
[2024-10-07 17:49] VITALS: BP 185/93
== END 2024-10-07 17:49 | disposition home or self-care (01) ==
LOC: ER 11:55
PROVIDERS: Physician Assistant
DX: S70.02XA Contusion of left hip, initial encounter (principal); G47.30 Sleep apnea, unspecified; I10 Essential (primary) hypertension; E11.9 Type 2 diabetes mellitus without complications; W01.0XXA Fall on same level from slipping, tripping and stumbling without subsequent striking against object, initial encounter; Z79.84 Long term (current) use of oral hypoglycemic drugs; Z79.899 Other long term (current) drug therapy; Z91.048 Other nonmedicinal substance allergy status; Z88.5 Allergy status to narcotic agent
CPT/HCPCS: 73502; 80053; 85025; 93005; 93010; 93971; 99284-25; A9270